=== PATIENT | female | born 1945 | race American Indian/Alaskan Native ===

== ENCOUNTER 2022-02-07 15:31 | Emergency (ER) | payer MEDICARE ==
[2022-02-07] MEDS ORDERED: KETOROLAC 30 MG/1 ML INJ IV ONE (15:45)
--- NOTE | 2022-02-07 15:53 | Emergency Department Report ---
ED Extremity Problem HPI - General Chief complaint: Extremity Injury, Lower Stated complaint: KNEE PAIN Time Seen by Provider: 02/07/22 15:39 Source: patient, EMS Mode of arrival: Stretcher Limitations: Physical Limitation - History of Present Illness Initial comments: Patient is a 76-year-old female brought in by EMS from home with complaint of pain and swelling in both of her knees for the past several days. She reports history of arthritis and states she has been using OTC meds and Voltaren cream with no improvement. She denies any fever or chills. No recent injuries. MD Complaint: joint swelling, joint paint Severity scale (0 -10): 8 - Related Data Home Medications Medication Instructions Recorded Confirmed Last Taken NovoLOG Mix 70/30 15 units SUB-Q BID 02/17/15 02/17/15 Unknown Allergies Allergy/AdvReac Type Severity Reaction Status Date / Time No Known Allergies Allergy Verified 02/07/22 15:36 ED Review of Systems ROS: Stated complaint: KNEE PAIN Other details as noted in HPI Constitutional: denies: chills, fever Respiratory: denies: cough, shortness of breath, wheezing Cardiovascular: denies: chest pain, palpitations Gastrointestinal: denies: abdominal pain, nausea, diarrhea Genitourinary: denies: urgency, dysuria, discharge Musculoskeletal: joint swelling, arthralgia Skin: denies: rash, lesions Neurological: denies: headache, weakness, paresthesias Psychiatric: denies: anxiety, depression ED Past Medical Hx - Past Medical History Hx Hypertension: Yes Hx CVA: Yes Hx Diabetes: Yes Hx Arthritis: Yes (RA) Hx HIV: No - Surgical History Hx Pacemaker: Yes Additional Surgical History: x4 - Social History Smoking Status: Never Smoker Substance Use Type: None - Medications Home Medications: Home Medications Medication Instructions Recorded Confirmed Last Taken Type NovoLOG Mix 70/30 15 units SUB-Q BID 02/17/15 02/17/15 Unknown History ED Physical Exam - General Limitations: Physical Limitation General appearance: alert, in no apparent distress - Head Head exam: Present: atraumatic, normocephalic - Respiratory Respiratory exam: Present: normal lung sounds bilaterally. Absent: respiratory distress - Cardiovascular Cardiovascular Exam: Present: regular rate, normal rhythm. Absent: systolic murmur, diastolic murmur, rubs, gallop - GI/Abdominal GI/Abdominal exam: Present: soft. Absent: distended, tenderness - Rectal Rectal exam: Present: deferred - Extremities Exam Extremities exam: Present: joint swelling (Swelling to both knees. No effusion or overlying erythema noted. Right knee tender to palpation diffusely.) - Neurological Exam Neurological exam: Present: alert, oriented X3, CN II-XII intact - Psychiatric Psychiatric exam: Present: normal affect, normal mood - Skin Skin exam: Present: warm, dry, intact, normal color ED Course Vital Signs 02/07/22 02/07/22 15:33 16:57 Temperature 97.7 F 98.9 F Pulse Rate 67 69 Respiratory 16 18 Rate Blood Pressure 123/73 101/64 [Left] O2 Sat by Pulse 99 99 Oximetry ED Medical Decision Making - Lab Data Result diagrams: 02/07/22 15:50 02/07/22 15:50 - Medical Decision Making 76-year-old female presenting via EMS with complaint of bilateral knee pain without recent injury fever or illness. Laboratory evaluation revealed normal white blood cell count, uric acid within normal range. X-ray shows diffuse bone demineralization mild degenerative changes without signs of effusion. She received IV Toradol which appears to have relieved her symptoms. She is stable for discharge home with PCP follow-up in 1 to 2 weeks. Critical care attestation.: If time is entered above; I have spent that time in minutes in the direct care of this critically ill patient, excluding procedure time. ED Disposition Clinical Impression: Osteoarthritis of knees, bilateral Disposition: 01 HOME / SELF CARE / HOMELESS Is pt being admited?: No Condition: Stable Instructions: Osteoarthritis Time of Disposition: 17:54
[2022-02-07 16:09] LABS: Basophils # (Auto) 0.1 K/mm3 (0.0-0.1); Basophils % (Auto) 0.7 % (0.0-1.8); Eosinophils # (Auto) 0.1 K/mm3 (0.0-0.4); Eosinophils % (Auto) 1.2 % (0.0-4.3); Hematocrit 34.3 % (30.3-42.9); Hemoglobin 11.1 gm/dl (10.1-14.3); Lymphocytes # (Auto) 3.7 K/mm3 (1.2-5.4); Lymphocytes % (Auto) 37.7 % (13.4-35.0); Mean Corpuscular HGB Conc 33 % (30-34); Mean Corpuscular Volume 82 fl (79-97); Monocytes # (Auto) 0.9 K/mm3 (0.0-0.8); Monocytes % (Auto) 9.2 % (0.0-7.3); Platelet Count 266 K/mm3 (140-440); Red Cell Distribution Width 14.7 % (13.2-15.2)
--- NOTE | 2022-02-07 16:32 | XRay Report ---
LEFT KNEE 2 VIEWS INDICATION / CLINICAL INFORMATION: Left knee pain. COMPARISON: None available. FINDINGS: BONES / JOINT(S): The bones are diffusely demineralized. There are minimal degenerative changes. Ther e is no evidence of acute fracture, subluxation, destructive lesion or joint effusion. SOFT TISSUES: There are moderate atherosclerotic calcifications. ADDITIONAL FINDINGS: None. IMPRESSION: No acute findings. Signer Name: Merlin Girard MD Signed: 02/07/2022 4:26 PM Workstation Name: [id number]
[2022-02-07 17:00] LABS: Blood Urea Nitrogen 25 mg/dL (7-17); Calcium 9.3 mg/dL (8.4-10.2); Hemolysis Index 5
[2022-02-07 17:02] LABS: BUN/Creatinine Ratio 63
[2022-02-07 19:44] VITALS: BP 131/63
== END 2022-02-07 22:33 | disposition home or self-care (01) ==
LOC: ED 15:31
DX: M17.0 Bilateral primary osteoarthritis of knee (principal); I10 Essential (primary) hypertension; E11.8 Type 2 diabetes mellitus with unspecified complications
CPT/HCPCS: 36415; 73560; 80048; 84550; 85025; 96374; 99284; J1885

== ENCOUNTER 2022-04-02 16:43 | Emergency (ER) | payer MEDICARE ==
[2022-04-02 17:01] VITALS: BP 156/70
--- NOTE | 2022-04-02 17:27 | Emergency Department Report ---
ED Female HPI - General Chief complaint: Urogenital-Female Stated complaint: GILLIAM REPLACEMENT Time Seen by Provider: 04/02/22 17:15 Source: patient, EMS Mode of arrival: Stretcher Limitations: No Limitations - History of Present Illness Initial comments: Patient is a 76-year-old female brought in by EMS from home for dislodged suprapubic catheter. - Related Data Home Medications Medication Instructions Recorded Confirmed Last Taken NovoLOG Mix 70/30 15 units SUB-Q BID 02/17/15 02/17/15 Unknown Allergies Allergy/AdvReac Type Severity Reaction Status Date / Time No Known Allergies Allergy Verified 04/02/22 17:01 ED Review of Systems ROS: Stated complaint: GILLIAM REPLACEMENT Other details as noted in HPI Comment: All other systems reviewed and negative Constitutional: denies: chills, fever Respiratory: denies: cough, shortness of breath, wheezing Cardiovascular: denies: chest pain, palpitations Gastrointestinal: denies: abdominal pain, nausea, diarrhea Genitourinary: denies: urgency, dysuria, discharge Musculoskeletal: denies: back pain, joint swelling, arthralgia Skin: denies: rash, lesions Neurological: denies: headache, weakness, paresthesias ED Past Medical Hx - Past Medical History Hx Hypertension: Yes Hx CVA: Yes Hx Diabetes: Yes Hx Arthritis: Yes (RA) Hx HIV: No - Surgical History Hx Pacemaker: Yes Additional Surgical History: x4 - Social History Smoking Status: Never Smoker Substance Use Type: None - Medications Home Medications: Home Medications Medication Instructions Recorded Confirmed Last Taken Type NovoLOG Mix 70/30 15 units SUB-Q BID 02/17/15 02/17/15 Unknown History ED Physical Exam - General Limitations: No Limitations General appearance: alert, in no apparent distress - Head Head exam: Present: atraumatic, normocephalic - Respiratory Respiratory exam: Present: normal lung sounds bilaterally. Absent: respiratory distress - Cardiovascular Cardiovascular Exam: Present: regular rate, normal rhythm, normal heart sounds - GI/Abdominal GI/Abdominal exam: Present: soft, other (Suprapubic stoma present). Absent: distended, tenderness - Rectal Rectal exam: Present: deferred - Neurological Exam Neurological exam: Present: alert, oriented X3 - Psychiatric Psychiatric exam: Present: normal affect, normal mood - Skin Skin exam: Present: warm, dry, intact, normal color ED Course Vital Signs 04/02/22 16:47 Temperature 97.4 F L Pulse Rate 100 H Blood Pressure 156/70 [Left] O2 Sat by Pulse 97 Oximetry ED Medical Decision Making - Medical Decision Making Suprapubic Gilliam replaced by me without complication using sterile technique. Patient stable for discharge. Critical care attestation.: If time is entered above; I have spent that time in minutes in the direct care of this critically ill patient, excluding procedure time. ED Disposition Clinical Impression: Encounter for suprapubic catheter care Disposition: 01 HOME / SELF CARE / HOMELESS Is pt being admited?: No Condition: Stable Instructions: Suprapubic Catheter Home Guide Time of Disposition: 17:27
== END 2022-04-02 22:29 | disposition home or self-care (01) ==
LOC: ED 16:43
DX: T83.518A Infection and inflammatory reaction due to other urinary catheter, initial encounter (principal); I10 Essential (primary) hypertension
CPT/HCPCS: 51702; 99283